=== PATIENT | female | born 1945 | race Caucasian/White ===

== ENCOUNTER 2022-11-08 13:41 | Inpatient (IN) | payer MEDICARE, SELFPAY ==
--- NOTE | 2022-11-08 13:57 | PC.NURSE ---
Pt arrived to the floor at 1350 via EMS
[2022-11-08 14:25] VITALS: BP 160/68; PULSE 67; RESP 19; TEMP 36.4; O2SAT 97; BMI 29.1
[2022-11-08 15:12] LABS: Coronavirus 19, PCR Not Detected (NotDetected); Influenza A, PCR Not Detected (NotDetected); Influenza B, PCR Not Detected (NotDetected)
[2022-11-08 16:00] VITALS: BP 187/69; PULSE 58; PULSE 60; RESP 20; TEMP 36.7; O2SAT 97
--- NOTE | 2022-11-08 16:14 | XR_ITS ---
PROCEDURE INFORMATION: Exam: XR Chest Exam date and time: 11/08/2022 4:50 PM Age: 77 years old Clinical indication: Shortness of breath; Additional info: Symptomatic bradycardia TECHNIQUE: Imaging protocol: Radiologic exam of the chest. Views: 2 views. COMPARISON: No relevant prior studies available. FINDINGS: Lungs: Unremarkable. No consolidation. Pleural spaces: Unremarkable. No pleural effusion. No pneumothorax. Heart/Mediastinum: Unremarkable. No cardiomegaly. Bones/joints: Unremarkable. IMPRESSION: No acute findings.
--- NOTE | 2022-11-08 16:25 | EXP.HP ---
History of Present Illness *Admission Date: 11/08/22 *Reason for visit:: Chief complaint: Chest pain *History of present illness: This is a 77-year-old female that presented to [facility] emergency department with concerns of chest pain over 24 hours. Her past medical history significant for coronary disease, congestive heart failure, previous cardiac ablation, chronic kidney disease stage III, colon cancer survivor 2011, atrial fibrillation on chronic Coumadin therapy. She reports that she was having chest pain characterized as pressure to her mid chest. It started on November 07 so she presented to her local ED. The chest pain would radiate to her left arm. She experienced associated nausea but no emesis. She experienced associated dyspnea and dizziness but no falls, syncope or confusion. She reports taking her blood pressure and heart rate and they were both elevated. In the ED her assessment included laboratory studies and ECG. Her ECG identified atrial fibrillation and her telemetry identified bradycardia tacky syndrome. Her troponin x2 was negative at outside emergency department. Our cardiology service line was contacted for transition of care. The patient has been transitioned to our hospital for chest pain and symptomatic bradycardia. Cardiology is due to see the patient. Presently she reports that she is chest pain-free. [facility] Disclaimer: The information contained in this section may have been updated after the patient was seen, as this information can be updated by other users. Medical History (Updated 11/08/22 @ 16:31 by Ernesto Scott MD) (HFpEF) heart failure with preserved ejection fraction Anticoagulated on Coumadin Atrial fibrillation Chronic anemia Chronic kidney disease, stage 3 Colon cancer Coronary artery disease Hypothyroidism Surgical History (Updated 11/08/22 @ 16:31 by Ernesto Scott MD) History of cardiac radiofrequency ablation History of colectomy History of hysterectomy History of left heart catheterization Family History (Updated 11/08/22 @ 16:32 by Ernesto Scott MD) Mother Congestive heart failure Dementia Father Heart attack Social History (Updated 11/08/22 @ 16:35 by Ernesto Scott MD) Smoking Status: Never smoker alcohol intake: never current occupational status: retired Travel in the last 8 weeks: None household members: none housing: house lives independently: Yes marital status: number of children: 2 current occupation: Retired sharad/judaism: [employer] Review of Systems Review of Systems Review of systems:: pertinent systems reviewed and negative unless documented below Constitutional Constitutional: Denies frequent falls *Cardiovascular Cardiovascular: Reports chest pain, Reports chest pain at rest, Reports chest pain with activity and Reports dyspnea *Respiratory Respiratory: Reports dyspnea *Neurologic Neurologic: Denies frequent falls Meds Home Medications and Allergies New Prescriptions to Start Prescriptions: Allergies Allergy/AdvReac Type Severity Reaction Status Date / Time cefaclor [From Ceclor] Allergy Unknown Verified 11/08/22 14:24 ibuprofen [From Motrin] Allergy Unknown Verified 11/08/22 14:24 promethazine [From Phenergan] Allergy Unknown Verified 11/08/22 14:24 Exam Data for Last 24 hours Vital signs and Labs for Last 24 Hours: Temp Pulse Resp BP Pulse Ox 98.1 F 58 L 20 187/69 H 97 11/08/22 16:00 11/08/22 16:00 11/08/22 16:00 11/08/22 16:00 11/08/22 16:00 Laboratory Results - last 24 hr 11/08/22 14:08: SARS-CoV-2 (PCR) Not detected, Influenza A Untype (PCR) Not detected, Influenza Type B (PCR) Not detected I & O for Last 24 hours: Intake & Output 11/05/22 11/06/22 11/07/22 11/08/22 23:59 23:59 23:59 23:59 Intake Total 0 / 0 Balance 0 / 0 Weight 72.291 kg Constitutional Constitutional: no acute distress and cooperative
[2022-11-08 17:57] LABS: Basophils % 0.6 % (0.1-2.0); Eosinophils # 0.1 K/mm3 (0.0-0.4); Eosinophils % 1.3 % (0.1-12.0); Hematocrit 36.4 % (37.0-47.0); Hemoglobin 12.3 g/dL (12.2-16.2); Lymphocytes # 1.1 K/mm3 (0.7-4.5); Mean Corpuscular HGB Conc 33.8 g/dL (31.8-35.4); Mean Corpuscular Hemoglobin 29.9 pg (27.0-31.2); Mean Corpuscular Volume 88.5 fl (81-99); Mean Platelet Volume 9.2 fl (7.4-10.4); Monocytes # 0.2 K/mm3 (0.1-1.0); Monocytes % 4.3 % (1.7-9.3); Neutrophils # 3.3 K/mm3 (1.8-7.8); Neutrophils % 69.9 % (37.0-80.0); Platelet Count 169 K/mm3 (142-424); Red Blood Count 4.11 M/mm3 (4.20-5.40); Red Cell Distribution Width 14.8 % (11.5-17.5); White Blood Count 4.8 K/mm3 (4.8-10.8)
[2022-11-08 18:06] LABS: INR 2.25 (0.9-1.1); Prothrombin Time 23.2 seconds (10.1-12.5)
[2022-11-08 18:14] LABS: Alanine Aminotransferase 17 U/L (12-78); Albumin Level 4.5 g/dl (3.5-5.0); Albumin/Globulin Ratio 1.9 (1.1-1.8); Alkaline Phosphatase 81 U/L (38-126); Anion Gap 10.8 mEq/L (5-15); Aspartate Amino Transferase 24 U/L (14-36); Bilirubin,Total 0.8 mg/dl (0.2-1.3); Blood Urea Nitrogen 14 mg/dl (7-17); Calcium 9.1 mg/dl (8.4-10.2); Carbon Dioxide 27 mmol/L (22.0-30.0); Chloride 109 mmol/L (98-107); Creatinine Clearance Estimated 52 mL/min (50-200); Estimated Glomerular Filt Rate 53 ml/min (>60); GFR (African American) 65 ML/MIN (>60); Globulin 2.4 g/dL (1.3-3.2); Glucose 114 mg/dl (74-100); Potassium 3.8 mmoL/L (3.5-5.1); Sodium 143 mmol/L (136-145); Total Protein,Serum 6.9 g/dl (6.3-8.2)
--- NOTE | 2022-11-08 18:34 | PC.NURSE ---
pt alert x 4. no skin issues. 20 lt wrist. 2l o2 via nc, yoly lung sounds diminished. no edema noted. pts b/p elevated at 187/69 with pulse at 58. pt c/o ruiz, treated per dec.pt does get dizzy apon standing. daughter at bedside. cb and personal items within reach.
[2022-11-08 19:47] VITALS: BP 151/59; PULSE 71; RESP 18; TEMP 36.6; O2SAT 95
[2022-11-08 20:00] VITALS: PULSE 60
[2022-11-08 20:43] LABS: Troponin I < 0.01 ng/ml (0.00-0.034)
[2022-11-08 23:02] LABS: Troponin I < 0.01 ng/ml (0.00-0.034)
[2022-11-08 23:35] VITALS: BP 110/49; PULSE 63; RESP 16; TEMP 36.6; O2SAT 95
[2022-11-09] VITALS (39 sets, daily range): BP systolic 102–214; BP diastolic 45–90; PULSE 50–90; RESP 10–20; TEMP 36.1–36.9; O2SAT 89–97; BMI 29.2
--- NOTE | 2022-11-09 04:35 | PC.NURSE ---
NO ACUTE CHANGES SINCE RECEIVING REPORT. PT HAS RESTED WELL. LUNG SOUNDS CLEAR. PERIODS OF SHORTNESS OF AIR. VSS. MILD BRADYCARDIA AT TIMES, MOSTLY WHEN GETTING UP AND OUT OF BED. NO C/O OF CHEST PAIN THIS SHIFT. TOLERATING ROOM AIR WELL. PT HAS BEEN A-FIB/FIRST DEGREE BLOCK ON TELE THIS SHIFT. CALL CABRERA WITHIN REACH.
--- NOTE | 2022-11-09 06:21 | ECG_ITS ---
APPROVED REPORT Exam: Resting ECG HR:62 bpm ECG Measurements Heart Rate 62 AXES NH 310 P 53 QRSd 112 QRS 0 QT 442 T -12 QTc 448 Conclusion SINUS RHYTHM WITH FIRST DEGREE AV BLOCK POSSIBLE LATERAL MYOCARDIAL INFARCTION , OF INDETERMINATE AGE [30 ms Q WAVE IN I/aVL/V5/V6] ABNORMAL ECG UNCONFIRMED REPORT Electronically signed by : Wale Garcia MD 11/09/2022 08:50:25
[2022-11-09 07:25] LABS: Basophils % 0.3 % (0.1-2.0); Eosinophils # 0.1 K/mm3 (0.0-0.4); Eosinophils % 1.6 % (0.1-12.0); Hematocrit 33.9 % (37.0-47.0); Hemoglobin 11.2 g/dL (12.2-16.2); Lymphocytes # 1.1 K/mm3 (0.7-4.5); Lymphocytes % 25.9 % (10-50); Mean Corpuscular HGB Conc 33.1 g/dL (31.8-35.4); Mean Corpuscular Hemoglobin 29.6 pg (27.0-31.2); Mean Corpuscular Volume 89.5 fl (81-99); Mean Platelet Volume 8.8 fl (7.4-10.4); Monocytes # 0.3 K/mm3 (0.1-1.0); Monocytes % 5.9 % (1.7-9.3); Neutrophils # 2.9 K/mm3 (1.8-7.8); Neutrophils % 66.1 % (37.0-80.0); Platelet Count 141 K/mm3 (142-424); Red Blood Count 3.79 M/mm3 (4.20-5.40); Red Cell Distribution Width 14.6 % (11.5-17.5); White Blood Count 4.4 K/mm3 (4.8-10.8)
[2022-11-09 07:34] LABS: Blood Urea Nitrogen 14 mg/dl (7-17); Calcium 8.3 mg/dl (8.4-10.2); Carbon Dioxide 23 mmol/L (22.0-30.0); Chloride 113 mmol/L (98-107); Chol/HDL Ratio 6.3 (1-3.5); Cholesterol 163 mg/dl (140-200); Creatinine Clearance Estimated 52 mL/min (50-200); Estimated Glomerular Filt Rate 53 ml/min (>60); GFR (African American) 65 ML/MIN (>60); Glucose 98 mg/dl (74-100); HDL Cholesterol 26 mg/dl (40-60); Magnesium 1.9 mg/dl (1.6-2.3); Sodium 137 mmol/L (136-145); Triglycerides 282 mg/dl (30-150); VLDL Cholesterol 56 mg/dL (0-40)
[2022-11-09 07:39] LABS: INR 2.23 (0.9-1.1)
[2022-11-09 07:43] LABS: Iron 61 ug/dL (37-170); NT Pro Brain Natriuretic Pep. 585 pg/mL (0-450)
[2022-11-09 07:45] LABS: Direct LDL Cholesterol 69.35 mg/dL (100-129)
[2022-11-09 07:52] LABS: Total Iron Binding Capacity 272 ug/dL (265-497)
[2022-11-09 08:04] LABS: Thyroid Stimulating Hormone 2.18 uIU/mL (0.465-4.68)
--- NOTE | 2022-11-09 08:22 | HMH.PHAINT1 ---
Pharmacy Intervention Comments: MEDICATION RECONCILIATION COMPLETED ON PATIENT USING EXTERNAL FILL HISTORY FROM PHARMACY AND PATIENT INTERVIEW. -LUCAS MATA, REHAND
[2022-11-09 08:24] LABS: Vitamin B12 331 pg/mL (239-931)
--- NOTE | 2022-11-09 08:45 | PC.NURSE ---
tech note; notified nurse of high blood pressure for 0800 vital signs.
--- NOTE | 2022-11-09 09:37 | EXP.CARD.CON ---
History of Present Illness History of Present Illness Consult date: 11/09/22 Requesting physician: Ernesto Scott Consult reason: chest pain Chief complaint: chest pain History of present illness: This is a 77-year-old white female who presented to the emergency department at [facility] for complaints of chest pain, high blood pressure and tachycardia. The patient states that her blood pressure was 200 systolic over 102 or 103 diastolic and her heart rate was in the low 100s. She states that she was also having chest pain. She describes this as a sharp sensation in the left side of her chest that was radiating to her left arm. It was associated with shortness of breath and dizziness and nausea. She states that this lasted for approximately 24 hours. She states that nothing was helping to improve her pain. Nothing worsen the pain. She states that once she was in the hospital at [place] for quite some time the chest pain improved. The patient states for the last several days she had not been feeling well. While she was in the hospital at [place] the patient went into atrial fibrillation. She also had episodes of bradycardia with second-degree AV block type II and high 2-1 AV block as well with bradycardia and heart rates in the 30s. The patient was having tacky bradycardia syndrome. She was transferred here to [facility] for further evaluation and permanent pacemaker placement. The patient has been having angina as well as symptomatic bradycardia. She denies any fever, chills, vomiting, diarrhea, PND or orthopnea. [facility] Disclaimer: The information contained in this section may have been updated after the patient was seen, as this information can be updated by other users. Medical History (Updated 11/09/22 @ 09:46 by Ella Bates APRN) (HFpEF) heart failure with preserved ejection fraction Angina pectoris Anticoagulated on Coumadin Atrial fibrillation Chronic anemia Chronic kidney disease, stage 3 Colon cancer Coronary artery disease Hyperlipidemia Hypertension Hypothyroidism [facility] current use of anticoagulant Second degree AV block Symptomatic bradycardia Tachy-villa syndrome Surgical History (Updated 11/08/22 @ 16:31 by Ernesto Scott MD) History of cardiac radiofrequency ablation History of colectomy History of hysterectomy History of left heart catheterization Family History (Updated 11/08/22 @ 16:32 by Ernesto Scott MD) Mother Congestive heart failure Dementia Father Heart attack Social History (Updated 11/08/22 @ 16:35 by Ernesto Scott MD) Smoking Status: Never smoker alcohol intake: never current occupational status: retired Travel in the last 8 weeks: None household members: none housing: house lives independently: Yes marital status: number of children: 2 current occupation: Retired sharad/hoahaoism: [employer] Review of Systems Review of Systems Review of systems:: pertinent systems reviewed and negative unless documented below Constitutional Constitutional: Reports system reviewed and no additional complaints, except as documented, Reports fatigue and Reports lethargy Eyes Eyes: Reports system reviewed and no additional complaints, except as documented ENT Ears, Nose, Mouth, and Throat: Reports system reviewed and no additional complaints, except as documented and Reports dizziness *Cardiovascular Cardiovascular: Reports system reviewed and no additional complaints, except as documented, Reports chest pain, Reports chest pain at rest, Reports chest pain with activity, Reports dyspnea, Reports dyspnea on exertion, Reports lightheadedness and Reports radiating jaw, neck or arm pain *Respiratory Respiratory: Reports system reviewed and no additional complaints, except as documented, Reports dyspnea and Reports dyspnea on exertion *Gastrointestinal Gastrointestinal: Reports system reviewed and no add
--- NOTE | 2022-11-09 09:49 | EXP.PN ---
Subjective *Date: 11/09/22 *Time: 09:49 Interval history: Date of service November 09, 2022 The patient reports no acute events overnight. Nursing staff report that the patient remains afebrile with improved blood pressures, improved heart rates and saturating appropriately on room air. Cardiology is due to see the patient. Her morning labs have been reviewed and discussed and identify stability. INR 2.2. Electrolytes stable, creatinine 1.0. BNP 585, B12 331. Exam Data for Last 24 hours Vital signs and Labs for Last 24 Hours: Temp Pulse Resp BP Pulse Ox 98.4 F 56 L 18 188/79 H 97 11/09/22 08:00 11/09/22 08:00 11/09/22 08:00 11/09/22 08:00 11/09/22 08:00 Laboratory Results - last 24 hr 11/08/22 14:08: SARS-CoV-2 (PCR) Not detected, Influenza A Untype (PCR) Not detected, Influenza Type B (PCR) Not detected 11/08/22 17:38: WBC 4.8, RBC 4.11 L, Hgb 12.3, Hct 36.4 L, MCV 88.5, MCH 29.9, MCHC 33.8, RDW 14.8, Plt Count 169, MPV 9.2, Neut % (Auto) 69.9, Lymph % (Auto) 24.0, Cowley % (Auto) 4.3, Eos % (Auto) 1.3, Baso % (Auto) 0.6, Neut # (Auto) 3.3, Lymph # (Auto) 1.1, Cowley # (Auto) 0.2, Eos # (Auto) 0.1, Baso # (Auto) 0.0 11/08/22 17:38: PT 23.2 H, INR 2.25 H 11/08/22 17:38: Sodium 143, Potassium 3.8, Chloride 109 H, Carbon Dioxide 27, Anion Gap 10.8, BUN 14, Creatinine 1.00, Estimated Creat Clear 52, Estimated GFR 53 L, Est GFR ( Amer) 65, Glucose 114 H, Calcium 9.1, Magnesium 2.0, Total Bilirubin 0.8, AST 24, ALT 17, Alkaline Phosphatase 81, Total Protein 6.9, Albumin 4.5, Globulin 2.4, Albumin/Globulin Ratio 1.9 H 11/08/22 19:30: Troponin I < 0.01 11/08/22 22:30: Troponin I < 0.01 11/09/22 07:15: WBC 4.4 L, RBC 3.79 L, Hgb 11.2 L, Hct 33.9 L, MCV 89.5, MCH 29.6, MCHC 33.1, RDW 14.6, Plt Count 141 L, MPV 8.8, Neut % (Auto) 66.1, Lymph % (Auto) 25.9, Cowley % (Auto) 5.9, Eos % (Auto) 1.6, Baso % (Auto) 0.3, Neut # (Auto) 2.9, Lymph # (Auto) 1.1, Cowley # (Auto) 0.3, Eos # (Auto) 0.1, Baso # (Auto) 0.0 11/09/22 07:15: PT 23.0 H, INR 2.23 H 11/09/22 07:15: Sodium 137, Potassium 4.0, Chloride 113 H, Carbon Dioxide 23, Anion Gap 5.0, BUN 14, Creatinine 1.00, Estimated Creat Clear 52, Estimated GFR 53 L, Est GFR ( Amer) 65, Glucose 98, Calcium 8.3 L, Magnesium 1.9, Iron 61, TIBC 272, Iron Saturation 22.63633, NT-Pro-B Natriuret Pep 585 H, Triglycerides 282 H, Cholesterol 163, LDL Cholesterol Direct 69.35 L, VLDL Cholesterol 56 H, HDL Cholesterol 26 L, Cholesterol/HDL Ratio 6.3 H, Vitamin B12 331, TSH 2.18 I & O for Last 24 hours: Intake & Output 11/06/22 11/07/22 11/08/22 11/09/22 23:59 23:59 23:59 23:59 Intake Total 480 / 480 1041 / 1041 Output Total 0 / 0 Balance 480 / 480 1041 / 1041 Weight 72.291 kg 72.121 kg Constitutional Constitutional: no acute distress and cooperative *Routine HEENT Exam Head: Present normocephalic Eye: Present EOMI and PERRL ENT: Present mucous membranes moist *Routine Neck Exam Neck: Present supple; Absent lymphadenopathy *Routine Respiratory Exam Respiratory: Present CTA bilaterally, normal respiratory effort and symmetric chest movement *Routine Cardiovascular Exam Cardiovascular: Present RRR; Absent murmur or JVD *Routine Abdominal Exam Abdominal: Present soft and normoactive bowel sounds; Absent tenderness *Routine Extremities Exam Extremities: Present full ROM, pulses intact and normal capillary refill; Absent cyanosis, clubbing or edema *Routine Skin Exam Skin: Present warm; Absent rash *Routine Neurological Exam Neurological: Present alert, oriented X3, moving all extremities, normal tone, vision grossly intact, hearing grossly intact and normal speech Routine Psychiatric Exam Psychiatric: Present normal affect, normal thought process, cooperative, good insight and good judgment Assessment and Plan *Assessment and plan (1) Chest pain: Status: Acute Category: Medical Code(s): R07.9 - Chest pain, unspecified (2) Symptomatic bradycardia: Status
--- NOTE | 2022-11-09 12:07 | IR_ITS ---
APPROVED REPORT Patient Location: Inpatient PROCEDURES 1. Pocket formation for Permanent Pacemaker Placement. 2. Placement of an atrial sensing and pacing coil into the right atrial appendage. 3. Placement of a ventricular sensing and pacing coil in the right ventricular apex. 4. Permanent Pacemaker Placement. INDICATION AV block, Symptomatic bradycardia, Heart block Informed consent was obtained prior to the procedure. COMPLICATIONS None Estimated Blood Loss: Less than 10 ml TECHNIQUE 1% Lidocaine with epinephrine used to anesthetized the left anterior aspect of the chest. Scalpel was used to make the initial cutaneous incision while electrocautery was used to dissect down tinto the fascia. The fascia was lifted off the pectoralis muscle and digitally manipulated creating a pocket for the pacemaker. The patient was then placed in Trendelenburg position and the subclavian vein was accessed twice via the Selinger technique, there are two wires in the vein. A 6 [place] sheath was placed under fluoroscopic guidance into the subclavian vein over one of the wires while keeping the other wire in place within the subclavian vein. The dilator was removed from the sheath. Using fluoroscopic guidance, the ventricular lead was placed into the right ventricular apex, screwed and secured into place. Electronic interrogation proved acceptable thresholds and voltage within the lead. Using 3-0 silk, the ventricular lead was then secured into place. Lead was secured to the facia using the 3-0 silk. Following this, the sheath was pealed away. An additional 6 [place] fresh sheath and dilator was placed over the existing wire. Using fluoroscopic guidance, the atrial lead was the placed into the right atrial appendage and screwed and secured in place. Electrical interrogation demonstrated acceptable thresholds and voltage number. The atrial lead was then secured into place using 3-0 silk. 1 gram of Ancef was used to flush the pocket. Following the pacemaker generator being secured to the fascia and in place, Monocryl was used to close the subcutaneous layers while sariah were used to close the cutaneous layer. A pressure dressing was placed and the patient was transferred to the postop holding area in stable condition for postoperative care. INTERROGATION Generator Model number: [employer] YANA GOFF, L311 Generator Serial number: [id number] Atrial lead model number: INGEVITY+ 45CM, 7840 Atrial lead serial number: [id number] P-wave: 2-3mV Impedence: 516 ohms Threshold: 1.2V@0.4ms Right Ventricular lead model number: ALEX+ 52CM, 7841 Right Ventricular lead serial number: [id number] R-wave: 11mV Impedence: 729 ohms Threshold: 0.7V@0.4ms Pacing Parameters: Mode: DDDR Base/Max Track:60 ppm / 130 ppm No diaphragmatic stimulation at 10 volts. IMPRESSION 1. Successful pocket formation for Permanent Pacemaker Placement. 2. Successful placement of an atrial sensing and pacing coil into the right atrial appendage. 3. Successful placement of a ventricular sensing and pacing coil in the right ventricular apex. 4. Successful permanent Pacemaker Placement. PLAN 1. Post Op Wound care Electronically signed by : Linden Disla MD 11/12/2022 09:35:05
--- NOTE | 2022-11-09 12:07 | IR_ITS ---
APPROVED REPORT Patient Location: Inpatient Prototyper: JENN Zapata RT (R) PROCEDURES Left heart catheterization Left ventriculogram Selective coronary angiogram INDICATION Recalcitrant and prolonged chest pain, High pretest likelihood for coronary disease, Elevated troponin suggestive of acute non-ST elevation myocardial infarction, Intermittent high degree AV block Informed consent was obtained prior to the procedure. COMPLICATIONS None Estimated Blood Loss: Less than 10 ml TECHNIQUE One percent lidocaine used to anesthetize the right anterior aspect of the wrist. The right radial artery was accessed via the Seldinger technique. A 6 [place] sheath was placed in the right radial artery. 2.5 mg of verapamil, 800 mcg of nitroglycerin, 1mg Lidocaine and 5000 U Heparin were given through the arterial sheath. The papa catheter was also used to perform left heart catheterization, left ventriculogram and selective coronary angiogram. At the end of the procedure the sheath was removed good hemostasis was achieved using Traclet band, patient was transferred to the postop holding area in stable condition. ANGIOGRAPHIC RESULTS The left main artery Normal The left anterior descending artery Mild luminal irregularities The circumflex artery Codominant with mid vessel 30% stenoses The right coronary artery Codominant normal The CHAN ventriculogram reveals Normal slightly hyperdynamic at 70 to 75% The left ventricular end-diastolic pressure Severe to critically elevated at 40 mmHg IMPRESSION Mild nonflow limiting coronary disease Hyperdynamic ventricle consistent with diastolic dysfunction Severe to critically elevated LVEDP also consistent with advanced diastolic dysfunction PLAN 1. Treatment of diastolic dysfunction with beta-blockers combined with verapamil 2. Low-dose diuretics 3. Proceed with AV pacemaker placement due to high degree AV block/2-1 AV block 4. Medical management for coronary artery disease Electronically signed by : Linden Disla MD 11/09/2022 12:48:37
--- NOTE | 2022-11-09 12:41 | PC.NURSE ---
received a call from electroplating laborer that FFP will be given between heart cath and pacemaker in the electroplating laborer
--- NOTE | 2022-11-09 15:04 | SUR.PREOP ---
AWAITING PROCEDURE START TO LINEWORKER FFP PER PHYCISIAN INSTRUCTIONS
--- NOTE | 2022-11-09 16:32 | XR_ITS ---
PROCEDURE INFORMATION: Exam: XR Chest Exam date and time: 11/09/2022 4:32 PM Age: 77 years old Clinical indication: Condition or disease; Cardiac pacemaker adjustment and management; Additional info: Post pacemaker TECHNIQUE: Imaging protocol: Radiologic exam of the chest. Views: 1 view. COMPARISON: CR XR CHEST 2V 11/08/2022 4:50 PM FINDINGS: Tubes, catheters and devices: There is a left-sided pacemaker in appropriate position. Lungs: No focal consolidation. No mass. Pleural spaces: No pleural effusion. No pneumothorax. Heart/Mediastinum: The heart is markedly enlarged. Bones/joints: Unremarkable. There is no acute fracture present. IMPRESSION: 1. Severe cardiomegaly. 2. No acute cardiac or pulmonary process.
--- NOTE | 2022-11-09 16:39 | CA_ITS ---
APPROVED REPORT EXAM: Comprehensive 2D, Doppler, and color-flow Echocardiogram Silver Spray Worker: Tania Sherwood CRT Ht: 5 ft 2 in Wt: 159lbs BSA: 1.73 BP: 1887/69 mmHg Indications: Chest Pain, ASD, Atrial Fibrillation, CAD, bradycardia, ablation, hx colon cancer, ckd 2D Dimensions LVOT 1.51 cm (M/F) 1.5-2.5 LA Volume 65.00 mL LA Volume Index 36.50 mL/m2 (M/F) 16-34 M-Mode Dimensions RVDd 1.71 cm (0.9-2.6) LA Diam 3.88 cm (1.9-4.0) LVDd 3.91 cm (3.5-5.7) Ao Diam 2.85 cm (2.0-3.7) LVDs 2.43 cm (3.5-5.7) IVSd 2.77 cm (0.6-1.1) PWd 0.87 cm (0.6-1.1) EF (Teich) 68.60% FS 37.90% EDV (Teich) 66.30 mL ESV (Teich) 20.80 mL LV Diastology E Decel Time 200.00 (160-240 msec) E/A Ratio 0.90 MED E' 4.40 (< 7 cm/sec) MED A' 6.20 cm/s E'/MED E' Ratio 29.82 (>14) LAT E' 4.10 (<10 cm/sec) LAT A' 7.40 cm/s E/LAT E' Ratio 32.00 (>14) Aortic Valve AO Peak GR. 8.40 mmHg Mitral Valve MV E Max Andrea. 131.00 (40-130 cm/s) MV A Velocity 146.00 (40-130 cm/s) E/A Ratio 0.90 MV Decel. Time 200.00 (160-240 ms) MV PHT 59.00 ms Pulmonary Valve PV Peak Velocity 167.00 (50-150 cm/s) Tricuspid Valve TR P. Velocity 382.00 cm/s RAP Estimate 10.00 mmHg RVSP 68.30 mmHg Left Ventricle Left atrium is mildly enlarged, left ventricle is normal size, mild concentric left ventricular hypertrophy, estimated ejection fraction 55% with no regional wall motion abnormality, diastolic parameters are inconclusive. Right Ventricle Right atrium and right ventricle are mildly enlarged with normal contractility. Atria Intra-atrial septum is not well visualized, if clinically indicated agitated saline contrast study is recommended to assess for intracardiac shunt. Aortic Valve Aortic valve is thickened and calcified without aortic stenosis or aortic insufficiency. Mitral Valve Mitral valve has mitral annular calcification, leaflets are minimally thickened, there is no mitral stenosis, there is mild mitral regurgitation. Tricuspid Valve Tricuspid valve grossly normal, there is mild tricuspid regurgitation, tricuspid regurgitation jet velocity is inadequate for calculation of the right ventricular systolic pressure. Pulmonic Valve Pulmonic valve is poorly visualized. Great Vessels Aortic root is normal size. Inferior vena cava is poorly visualized. Pericardium No significant pericardial effusion noted. Conclusion 1. Biatrial enlargement, normal left ventricular size, mild concentric left ventricular hypertrophy, estimated ejection fraction 55% with no regional wall motion abnormality, diastolic parameters are inconclusive. 2. Mildly enlarged right ventricle with normal contractility. 3. Interatrial septum is not well visualized, cannot exclude presence of atrial septal defect, if clinically indicated a repeat study with agitated saline contrast is recommended. 4. No significant pericardial effusion noted. 5. Inferior vena cava is poorly visualized. Electronically signed by : Man Raya MD 11/09/2022 16:01:25
--- NOTE | 2022-11-09 16:42 | P.PN_ITS ---
[facility] Disclaimer: The information contained in this section may have been updated after the patient was seen, as this information can be updated by other users. Medical History (Updated 11/09/22 @ 09:46 by Ella Bates APRN) (HFpEF) heart failure with preserved ejection fraction Angina pectoris Anticoagulated on Coumadin Atrial fibrillation Chronic anemia Chronic kidney disease, stage 3 Colon cancer Coronary artery disease Hyperlipidemia Hypertension Hypothyroidism FDC current use of anticoagulant Second degree AV block Symptomatic bradycardia Tachy-villa syndrome Surgical History (Updated 11/08/22 @ 16:31 by Ernesto Scott MD) History of cardiac radiofrequency ablation History of colectomy History of hysterectomy History of left heart catheterization Family History (Updated 11/08/22 @ 16:32 by Ernesto Scott MD) Mother Congestive heart failure Dementia Father Heart attack Social History (Updated 11/08/22 @ 16:35 by Ernesto Scott MD) Smoking Status: Never smoker alcohol intake: never substance use type: denies use current occupational status: retired Travel in the last 8 weeks: None household members: none housing: house lives independently: Yes marital status: number of children: 2 current occupation: Retired sharad/shinto: Confucianism [facility] Anesthesia Checklist Patient Identification Patient Identification: Arm Band Structural Data Admitted From: Inpatient Planned Operative Procedure/s: Dual Chamber Pacemaker Consent for Planned Operative Procedure(s) Verified: Yes Verified Documents: Surgical Consent and History and Physical NPO Status Verified Time NPO: 00:00 Additional verifications Anesthesia Reactions: No Airway Assessment C-Spine Mobility Assessed: Yes TMJ Mobility Assessed: Yes Dentition: Good Dentition (lower. Upper dentures removed) Neurological Assessment Level of Consciousness: Awake and Alert Anesthesia Plan Anesthesia Risk discussed: Yes Anesthesia Plan: Verified ASA Class: III Anesthesia Type: MAC Preoperative Comments Pre-Operative Comments: Pt had received sedation earlier in the day. Discussed plan of care with pt and also family members in the waiting room.
--- NOTE | 2022-11-09 18:20 | PC.NURSE ---
pt returned from cathead operator at approx 1720, right radial cath site and left chest pacer in place, right radial cath site with dressing in place, C/D/I, pacer site soft, with no bruising noted, pt A&Ox4, no complaints of pain
[2022-11-10] VITALS (8 sets, daily range): BP systolic 149–195; BP diastolic 64–78; PULSE 63–72; RESP 18–20; TEMP 36.6–37.7; O2SAT 90–96; BMI 64.5
--- NOTE | 2022-11-10 05:16 | PC.NURSE ---
Right radial cath site and left chest pacer in place, right radial cath site with dressing in place, C/D/I, pacer site soft, with no bruising noted, pt A&Ox4, No changes throughout the night.
[2022-11-10 07:12] LABS: INR 1.59 (0.9-1.1); Prothrombin Time 16.7 seconds (10.1-12.5)
[2022-11-10 07:16] LABS: Anion Gap 10.5 mEq/L (5-15); Basophils % 0.3 % (0.1-2.0); Blood Urea Nitrogen 11 mg/dl (7-17); Calcium 8.1 mg/dl (8.4-10.2); Carbon Dioxide 25 mmol/L (22.0-30.0); Chloride 110 mmol/L (98-107); Creatinine Clearance Estimated 34 mL/min (50-200); Eosinophils # 0.1 K/mm3 (0.0-0.4); Eosinophils % 1.5 % (0.1-12.0); Estimated Glomerular Filt Rate 53 ml/min (>60); GFR (African American) 65 ML/MIN (>60); Glucose 84 mg/dl (74-100); Hematocrit 29.2 % (37.0-47.0); Lymphocytes # 0.6 K/mm3 (0.7-4.5); Lymphocytes % 15.2 % (10-50); Mean Corpuscular Hemoglobin 30.3 pg (27.0-31.2); Mean Corpuscular Volume 89.1 fl (81-99); Monocytes # 0.2 K/mm3 (0.1-1.0); Monocytes % 6.5 % (1.7-9.3); Neutrophils # 2.8 K/mm3 (1.8-7.8); Neutrophils % 76.4 % (37.0-80.0); Platelet Count 115 K/mm3 (142-424); Potassium 3.5 mmoL/L (3.5-5.1); Red Blood Count 3.27 M/mm3 (4.20-5.40); Red Cell Distribution Width 14.8 % (11.5-17.5); Sodium 142 mmol/L (136-145); White Blood Count 3.7 K/mm3 (4.8-10.8)
[2022-11-10 07:37] LABS: Hemoglobin 9.9 g/dL (12.2-16.2)
--- NOTE | 2022-11-10 10:01 | EXP.PN ---
Subjective *Date: 11/10/22 *Time: 10:01 Interval history: Date of service November 10, 2022 The patient is sitting up in her bedside chair. I am accompanied by her nurse Nikki. Nursing staff report that she remains afebrile with stable vital signs improved blood pressures and saturating appropriately on 2 L of oxygen via nasal cannula. The patient reports that her left upper chest wall is tender. There is concern for a mild hematoma. Her morning labs have been reviewed and discussed including an INR 1.59, normal white blood cell count, hemoglobin 9.9, platelets 115, normal electrolytes and creatinine 1.00. Exam Data for Last 24 hours Vital signs and Labs for Last 24 Hours: Temp Pulse Resp BP Pulse Ox 98.4 F 69 20 149/64 H 93 L 11/10/22 08:00 11/10/22 08:00 11/10/22 08:00 11/10/22 08:00 11/10/22 08:00 Laboratory Results - last 24 hr 11/09/22 07:15: Blood Type Confirm O Positive 11/09/22 11:42: Blood Type O Positive 11/10/22 06:47: PT 16.7 H, INR 1.59 H 11/10/22 06:47: WBC 3.7 L, RBC 3.27 L, Hgb 9.9 L D, Hct 29.2 L, MCV 89.1, MCH 30.3, MCHC 34.0, RDW 14.8, Plt Count 115 L, MPV 9.0, Neut % (Auto) 76.4, Lymph % (Auto) 15.2, [place] % (Auto) 6.5, Eos % (Auto) 1.5, Baso % (Auto) 0.3, Neut # (Auto) 2.8, Lymph # (Auto) 0.6 L, [place] # (Auto) 0.2, Eos # (Auto) 0.1, Baso # (Auto) 0.0 11/10/22 06:47: Sodium 142, Potassium 3.5, Chloride 110 H, Carbon Dioxide 25, Anion Gap 10.5, BUN 11, Creatinine 1.00, Estimated Creat Clear 34, Estimated GFR 53 L, Est GFR ( Amer) 65, Glucose 84, Calcium 8.1 L I & O for Last 24 hours: Intake & Output 01/18/23 11/08/22 11/09/22 11/10/22 23:59 23:59 23:59 23:59 Intake Total 480 / 480 1846.75 / 1846.75 1040 / 1040 Output Total 0 / 0 350 / 650 800 / 800 Balance 480 / 480 1496.75 / 1196.75 240 / 240 Weight 72.291 kg 72 kg 159 kg Constitutional Constitutional: no acute distress and cooperative *Routine HEENT Exam Head: Present normocephalic Eye: Present EOMI and PERRL ENT: Present mucous membranes moist *Routine Neck Exam Neck: Present supple; Absent lymphadenopathy *Routine Respiratory Exam Respiratory: Present CTA bilaterally, normal respiratory effort and symmetric chest movement *Routine Cardiovascular Exam Cardiovascular: Present RRR; Absent murmur or JVD Comments: Left chest wall postsurgical tenderness with minor inferior hematoma, no ecchymosis, edema or purulence *Routine Abdominal Exam Abdominal: Present soft and normoactive bowel sounds; Absent tenderness *Routine Extremities Exam Extremities: Present full ROM, pulses intact and normal capillary refill; Absent cyanosis, clubbing or edema *Routine Skin Exam Skin: Present warm; Absent rash *Routine Neurological Exam Neurological: Present alert, oriented X3, moving all extremities, normal tone, vision grossly intact, hearing grossly intact and normal speech Routine Psychiatric Exam Psychiatric: Present normal affect, normal thought process, cooperative, good insight and good judgment Assessment and Plan *Assessment and plan (1) Chest pain: Status: Acute Category: Medical Code(s): R07.9 - Chest pain, unspecified (2) Symptomatic bradycardia: Status: Acute Category: Medical Code(s): R00.1 - Bradycardia, unspecified (3) Hypertensive urgency: Status: Acute Category: Medical Code(s): I16.0 - Hypertensive urgency (4) Atrial fibrillation: Status: Acute Category: Medical Code(s): I48.91 - Unspecified atrial fibrillation (5) (HFpEF) heart failure with preserved ejection fraction: Status: Acute Category: Medical Code(s): I50.30 - Unspecified diastolic (congestive) heart failure (6) Coronary artery disease: Status: Acute Category: Medical Code(s): I25.10 - Atherosclerotic heart disease of [place] coronary artery without angina pectoris (7) Chronic anemia: Status: Acute Category: Medical Code
--- NOTE | 2022-11-10 10:40 | PC.NURSE ---
held pts Nikolay this am per MD order
--- NOTE | 2022-11-10 15:30 | PC.NURSE ---
pt has been up and ambulatory to the bedside toilet. c/o soreness to left chest. possible hematoma around pacer site is unchanged. medicated with prn and pt reports full relief/
--- NOTE | 2022-11-10 15:31 | PC.NURSE ---
pt has been alert and appropraite through out the shift. she has been getting up to bsc with SBA. medicated with prn pain medication due to pt c/o soreness in her left chest. hematoma to left chest wall is unchanged.
--- NOTE | 2022-11-10 21:09 | PC.NURSE ---
Small hematoma noted below dressing site of pacemaker placement. No changes noted. Area is c/d/i.
--- NOTE | 2022-11-10 22:22 | PC.NURSE ---
SOIL SCIENCE TEACHER made aware of pt's increasing BP of 194/68 with pulse of 64.
[2022-11-11] VITALS: BP 180/69; PULSE 63; PULSE 70; RESP 16; TEMP 37.6; O2SAT 94
--- NOTE | 2022-11-11 03:55 | PC.NURSE ---
No changes noted throughout the night.
[2022-11-11 04:00] VITALS: BP 170/60; PULSE 60; PULSE 62; RESP 18; TEMP 37.4; O2SAT 94; BMI 29.3
[2022-11-11 07:45] VITALS: BP 188/76; PULSE 71; RESP 18; TEMP 36.8; O2SAT 96
[2022-11-11 08:00] VITALS: PULSE 71; O2SAT 96
[2022-11-11 08:26] LABS: Basophils % 0.6 % (0.1-2.0); Eosinophils # 0.1 K/mm3 (0.0-0.4); Eosinophils % 1.4 % (0.1-12.0); Hematocrit 33.3 % (37.0-47.0); Hemoglobin 11.3 g/dL (12.2-16.2); Lymphocytes # 1.1 K/mm3 (0.7-4.5); Lymphocytes % 16.9 % (10-50); Mean Corpuscular HGB Conc 33.8 g/dL (31.8-35.4); Mean Corpuscular Hemoglobin 29.5 pg (27.0-31.2); Mean Corpuscular Volume 87.2 fl (81-99); Mean Platelet Volume 9.3 fl (7.4-10.4); Monocytes # 0.3 K/mm3 (0.1-1.0); Monocytes % 5.3 % (1.7-9.3); Neutrophils # 4.9 K/mm3 (1.8-7.8); Neutrophils % 75.7 % (37.0-80.0); Platelet Count 173 K/mm3 (142-424); Red Blood Count 3.82 M/mm3 (4.20-5.40); Red Cell Distribution Width 14.4 % (11.5-17.5); White Blood Count 6.4 K/mm3 (4.8-10.8)
[2022-11-11 08:44] LABS: INR 1.58 (0.9-1.1); Prothrombin Time 16.6 seconds (10.1-12.5)
[2022-11-11 08:47] LABS: Anion Gap 11.4 mEq/L (5-15); Blood Urea Nitrogen 17 mg/dl (7-17); Calcium 8.8 mg/dl (8.4-10.2); Carbon Dioxide 25 mmol/L (22.0-30.0); Chloride 105 mmol/L (98-107); Creatinine Clearance Estimated 40 mL/min (50-200); Estimated Glomerular Filt Rate 40 ml/min (>60); GFR (African American) 48 ML/MIN (>60); Glucose 115 mg/dl (74-100); Magnesium 1.6 mg/dl (1.6-2.3); Potassium 3.4 mmoL/L (3.5-5.1); Sodium 138 mmol/L (136-145)
--- NOTE | 2022-11-11 09:18 | EXP.DC.SUM ---
General Admission date:: 11/08/22 Discharge date: 11/11/22 HPI HPI HPI: This is a 77-year-old female that presented to [facility] emergency department with concerns of chest pain over 24 hours. Her past medical history significant for coronary disease, congestive heart failure, previous cardiac ablation, chronic kidney disease stage III, colon cancer survivor 2011, atrial fibrillation on chronic Coumadin therapy. She reports that she was having chest pain characterized as pressure to her mid chest. It started on November 07 so she presented to her local ED. The chest pain would radiate to her left arm. She experienced associated nausea but no emesis. She experienced associated dyspnea and dizziness but no falls, syncope or confusion. She reports taking her blood pressure and heart rate and they were both elevated. In the ED her assessment included laboratory studies and ECG. Her ECG identified atrial fibrillation and her telemetry identified bradycardia tacky syndrome. Her troponin x2 was negative at outside emergency department. Our cardiology service line was contacted for transition of care. The patient has been transitioned to our hospital for chest pain and symptomatic bradycardia. Cardiology is due to see the patient. Presently she reports that she is chest pain-free. Hospital Course Hospital Course Hospital Course: The patient is admitted to the medical floor with telemetry monitoring. Cardiology is consulted. Her labs and inflammatory markers are trended. Cardiology recommended left heart cath and pacemaker insertion. Her left heart cath was performed on November 09, 2022 which identified mild luminal coronary artery disease irregularities with no occlusive disease or intervention required. It also identified left ventricular end-diastolic pressure severely critically elevated at 40 mmHg. It is recommended that she continue medical management of her coronary artery disease. On November 09, 2022 she underwent AV pacemaker placement. Her chronic Coumadin therapy will be transition to factor Xa inhibitor therapy. She will continue with her home medications and add verapamil extended release 240 mg daily, bisoprolol 10 mg daily and loop diuretic with potassium replacement therapy daily. Pacemaker care site care instructions were reviewed with the patient. She is to follow-up with her PCP in 1 week and cardiology as recommended. She will continue with assessing her intake and output, blood pressures and continue with her recommended medication regimen. I spent 35 minutes in [id number] time with the patient and nursing staff concerning the discharge process. We discussed the admitting diagnoses and hospital course. We discussed identified improvement and the patient's desire to be discharged. We reviewed inpatient studies and imaging. The patient voiced understanding on the importance of follow-up with her primary care provider and firefighting equipment specialist(s). The patient plans to be compliant with the medication regimen prescribed and follow-up appointments. She understands that she can return to the emergency department with any sudden changes or concerns. Exam Data for Last 24 hours Vital signs and Labs for Last 24 Hours: Temp Pulse Resp BP Pulse Ox 98.3 F 71 18 188/76 H 96 11/11/22 07:45 11/11/22 08:00 11/11/22 07:45 11/11/22 07:45 11/11/22 08:00 Laboratory Results - last 24 hr 11/11/22 07:31: WBC 6.4 D, RBC 3.82 L, Hgb 11.3 L, Hct 33.3 L, MCV 87.2, MCH 29.5, MCHC 33.8, RDW 14.4, Plt Count 173 D, MPV 9.3, Neut % (Auto) 75.7, Lymph % (Auto) 16.9, [place] % (Auto) 5.3, Eos % (Auto) 1.4, Baso % (Auto) 0.6, Neut # (Auto) 4.9, Lymph # (Auto) 1.1, [place] # (Auto) 0.3, Eos # (Auto) 0.1, Baso # (Auto) 0.0 11/11/22 07:31: PT 16.6 H, INR 1.58 H 11/11/22 07:31: Sodium 138, Potassium 3.4 L, Chloride 105, Carbon Dioxide 25, Anion Gap 11.4, BUN 17 D, Creatinine 1.30 H D, Estimated Creat Clear 40, Estimated GFR 40 L, Es
--- NOTE | 2022-11-12 13:19 | CARE MANAGER ---
Contacted patient related to hospital discharge. Patient picked up all meds and has appt. scheduled with doctor. Denies questions or concerns. BUSTER Chen
== END 2022-11-11 10:50 | disposition home or self-care (01) | DRG 243 ==
PROVIDERS: Internal Medicine; Admitting Provider Family Medicine; PCP Family Medicine; Visit Provider Family Medicine
PROC: 0JH606Z Insertion of Pacemaker, Dual Chamber into Chest Subcutaneous Tissue and Fascia, Open Approach (ICD-10-PCS; principal; 2022-11-09 13:15)
DX: I49.5 Sick sinus syndrome (principal); I13.0 Hypertensive heart and chronic kidney disease with heart failure and stage 1 through stage 4 chronic kidney disease, or unspecified chronic kidney disease; I50.32 Chronic diastolic (congestive) heart failure; I16.0 Hypertensive urgency; I48.91 Unspecified atrial fibrillation; E03.9 Hypothyroidism, unspecified; N18.30 Chronic kidney disease, stage 3 unspecified; D63.1 Anemia in chronic kidney disease; Z85.038 Personal history of other malignant neoplasm of large intestine; I25.119 Atherosclerotic heart disease of native coronary artery with unspecified angina pectoris
CPT/HCPCS: G0379; 33208; 36415; 71045; 71046; 80048; 80053; 80061; 82607; 83540; 83550; 83735; 83880; 84443; 84484; 85025; 85610; 86900; 86901; 93005; 93306; 93458; 99152; C1725; C1769; C1785; C1898; C9803; J1644; P9017; Q9967; U0003; U0005